=== PATIENT | female | born 1950 | race Caucasian/White ===

== ENCOUNTER 2017-11-25 14:13 | Outpatient (CLI) | payer MEDICARE, BC, OTHER | END 2017-11-25 14:14 | disposition home or self-care (01) | LOC: BICMRI 14:13 | PROVIDERS: ATTEND Internal Medicine | DX: M19.90 Unspecified osteoarthritis, unspecified site (principal); M16.0 Bilateral primary osteoarthritis of hip; M48.061 Spinal stenosis, lumbar region without neurogenic claudication; M51.26 Other intervertebral disc displacement, lumbar region; M99.83 Other biomechanical lesions of lumbar region | CPT/HCPCS: 72148 ==

== ENCOUNTER 2018-07-19 10:26 | Outpatient (CLI) | payer MEDICARE, BC, OTHER | END 2018-07-19 10:27 | disposition home or self-care (01) | LOC: BICMAMMO 10:26 | PROVIDERS: ATTEND Internal Medicine | DX: Z12.31 Encounter for screening mammogram for malignant neoplasm of breast (principal); R92.1 Mammographic calcification found on diagnostic imaging of breast; Z13.820 Encounter for screening for osteoporosis | CPT/HCPCS: 77063; 77067; 77080 ==

== ENCOUNTER 2021-09-17 11:45 | Inpatient (IN) | payer MEDICARE, BC, OTHER ==
[2021-09-17] MEDS ORDERED: Vancomycin 1 GM/200 ML BAG ONE (12:15)
[2021-09-17] MEDS ORDERED: Cefepime 2 GM VIAL ONE (12:15)
[2021-09-17 12:51] LABS: Hemoglobin 12.4 g/dL (12.0-16.0); Mean Corpuscular HGB CONC 34.1 g/dL (32.0-36.0); Mean Corpuscular Hemoglobin 33.5 pg (27.0-31.0); Mean Corpuscular Volume 98.2 fL (78.0-98.0); Platelet Count 160 thou/uL (130-400); RBC Distribution Width 12.5 % (11.5-14.5); Red Blood Cell (RBC) Count 3.69 mill/uL (4.20-5.40); White Blood Cell (WBC) Count 14.9 thou/uL (4.8-10.8)
[2021-09-17 12:52] LABS: #Lymphocytes 0.6 thou/uL (1.20-3.40); #Monocytes 1.7 thou/uL (0.11-0.59); #Neutrophils 12.6 thou/uL (1.40-6.50); %Basophils 0.2 % (0.0-1.0); %Eosinophils 0.1 % (0.0-10.0); %Lymphocytes 4.2 % (21.0-51.0); %Monocytes 11.2 % (0.0-10.0); %Neutrophils 84.3 % (42.0-75.0); Mean Platelet Volume 8.3 fL (7.4-10.4)
[2021-09-17 12:53] LABS: Actual Bicarbonate (HCO3v) 12 mEq/L (22-28); Analyzer IN Cardio ER; Calcium, Ionized (venous) 0.94 mmol/L (1.16-1.32); Chloride (VBG) 113 mmol/L (98-106); Hemoglobin (Hb) 11.6 g/dL (11.7-16.1); Potassium (VBG) 2.84 mmol/L (3.70-5.30); Sodium 139.9 mmol/L (133-146); pH (venous) 7.25 (7.32-7.43)
[2021-09-17 12:55] LABS: Bilirubin Small (Negative); Blood, Urine Large (Negative); Glucose, Urine (Dipstick) Negative (Negative); Ketone, Urine Trace mg/dL (Negative); Leukocyte Negative (Negative); Nitrite Negative (Negative); Protein, Urine (Dipstick) 30 mg/dL (Neg-Trace); Urobilinogen 0.2 mg/dL (Less than 2)
[2021-09-17 12:56] LABS: Clarity Hazy (Clear)
[2021-09-17 13:05] LABS: Amphetamine Not Detected (NotDetected); Barbiturates Screen Not Detected (NotDetected); Benzodiazepine Screen Detected (NotDetected); Cocaine Metabolite Screen Not Detected (NotDetected); Methadone Not Detected (NotDetected); Methamphetamine Not Detected (NotDetected); Opiate Screen Detected (NotDetected); Oxycodone Screen Not Detected (NotDetected); Phencyclidine (PCP) Not Detected (NotDetected); THC/Cannabinoid Screen Not Detected (NotDetected); Tricyclic Screen Detected (NotDetected)
[2021-09-17 13:06] LABS: ALT (SGPT) 83 U/L (8-55); AST (SGOT) 148 U/L (5-34); Albumin 2.8 g/dL (3.4-4.8); Alkaline Phosphatase 92 U/L (40-110); Anion Gap 24 mmol/L (10-20); BUN (Urea Nitrogen) 79 mg/dL (9.8-20.1); Bilirubin, Total 0.7 mg/dL (0.2-1.2); Calc. Creatinine Clearance 0 mL/min (70-130); Calcium 6.9 mg/dL (7.8-10.44); Carbon Dioxide 10 mmol/L (23-31); Chloride 111 mmol/L (98-107); Globulin 2.3 g/dL (2.4-3.5); Glucose 258 mg/dL (83-110); Potassium 3.2 mmol/L (3.5-5.1); Protein, Total 5.1 g/dL (5.8-8.1); Sodium 142 mmol/L (136-145)
[2021-09-17 13:07] LABS: Alcohol 12 mg/dL (Less than 10); Lipase 46 U/L (8-78); Salicylate Less than 8.0 mg/dL (15.0-30.0)
[2021-09-17 13:08] LABS: RBC/HPF 0-3 HPF (0-3); WBC/HPF 0-3 HPF (0-3)
[2021-09-17 13:09] LABS: Bacteria/HPF None Seen HPF (None Seen); Squamous Epithelial 0-3 HPF (0-3)
[2021-09-17 13:13] LABS: CK (CPK) 5014 U/L (29-168)
[2021-09-17 13:26] LABS: CKMB 21.6 ng/mL (0-6.6)
[2021-09-17 13:40] LABS: SARS-CoV-2 NAA Rapid Test Not Detected (NotDetected)
[2021-09-17] MEDS ORDERED: Aspirin 300 MG Suppository ONE (13:58)
[2021-09-17] MEDS: Sodium Chloride 0.9% 1,000 ML IV SCH ×2 (15:28→21:39)
[2021-09-17 15:45] LABS: Lactic Acid 2.2 mmol/L (0.5-2.2)
[2021-09-17] MEDS ORDERED: FLU VACC QS2021-22(65YR UP)/PF 240 MCG/0.7 ML SYRINGE IM ONE (17:45)
[2021-09-17 18:05] VITALS: BMI 31.1
[2021-09-17] MEDS: Nebivolol HCl 5 MG TAB PO SCH (21:39)
[2021-09-17] MEDS: Acetaminophen 325 MG TAB PO PRN (22:52)
[2021-09-18 05:54] LABS: Anion Gap 15 mmol/L (10-20); BUN (Urea Nitrogen) 58 mg/dL (9.8-20.1); Calc. Creatinine Clearance 40 mL/min (70-130); Calcium 7.2 mg/dL (7.8-10.44); Carbon Dioxide 17 mmol/L (23-31); Chloride 116 mmol/L (98-107); Glucose 261 mg/dL (83-110); Sodium 145 mmol/L (136-145)
[2021-09-18] MEDS: Acetaminophen 325 MG TAB PO PRN (05:54)
[2021-09-18] MEDS: Sodium Chloride 0.9% 1,000 ML IV SCH ×3 (05:54→21:35)
[2021-09-18 05:55] LABS: Band 36 % (5-11); Hemoglobin 13.3 g/dL (12.0-16.0); Lymphocytes 2 % (21-51); MDiff Complete? YES; Mean Corpuscular HGB CONC 31.8 g/dL (32.0-36.0); Mean Corpuscular Hemoglobin 31.3 pg (27.0-31.0); Mean Corpuscular Volume 98.4 fL (78.0-98.0); Mean Platelet Volume 8.8 fL (7.4-10.4); Monocytes 8 % (0-10); Neutrophil 54 % (42-75); Platelet Count 147 thou/uL (130-400); RBC Distribution Width 12.7 % (11.5-14.5); Red Blood Cell (RBC) Count 4.25 mill/uL (4.20-5.40)
[2021-09-18 06:15] LABS: Potassium 2.6 mmol/L (3.5-5.1)
[2021-09-18] MEDS ORDERED: Electrolyte Replacement Protocol FS PRN (06:30)
[2021-09-18] MEDS: Potassium Chloride 40 MEQ in Premix Bag 1 BAG IVPB SCH ×2 (07:29→09:47)
[2021-09-18] MEDS ORDERED: Enoxaparin Sodium 30 MG/0.3 ML SYRINGE SC SCH (09:00)
[2021-09-18] MEDS: Nebivolol HCl 5 MG TAB PO SCH ×2 (09:43→21:42)
[2021-09-18] MEDS: cloNIDine 0.3 MG TAB PO SCH ×2 (09:45→21:41)
[2021-09-18 12:26] LABS: Vancomycin, Random 7.4 ug/mL (See Comment)
[2021-09-18] MEDS ORDERED: Cefepime 1 GM in Sodium Chloride 0.9% 100 ML IVPB SCH (13:00)
[2021-09-18] MEDS ORDERED: Vancomycin 1.5 GRAM/300 ML BAG 1.5 GM in Premix Bag 1 BAG IVPB SCH (13:00)
[2021-09-18 14:21] LABS: Potassium 3.9 mmol/L (3.5-5.1)
[2021-09-18] MEDS: Cyclobenzaprine 10 MG TAB PO SCH ×2 (15:28→21:42)
[2021-09-18] MEDS ORDERED: Vancomycin 1 GM in Premix Bag 1 BAG IVPB SCH (18:00)
[2021-09-18] MEDS ORDERED: Atorvastatin Calcium 10 MG TAB PO SCH (21:00)
[2021-09-18] MEDS ORDERED: Non-Formulary Item 1 EACH (Progesterone, Micronized [Progesterone] 200 MG Capsule) PO SCH (21:00)
[2021-09-18] MEDS ORDERED: Famotidine 20 MG TAB PO SCH (21:00)
[2021-09-18] MEDS: Doxycycline 100 MG CAP PO SCH (21:41)
[2021-09-18] MEDS: Progesterone,Micronized 100 MG CAP PO SCH (21:41)
[2021-09-18] MEDS: Diazepam 5 MG TAB PO SCH (21:42)
[2021-09-19] MEDS: Sodium Chloride 0.9% 1,000 ML IV SCH ×3 (04:10→17:16)
[2021-09-19 05:44] LABS: Anion Gap 12 mmol/L (10-20); BUN (Urea Nitrogen) 32 mg/dL (9.8-20.1); Calc. Creatinine Clearance 66 mL/min (70-130); Calcium 7.5 mg/dL (7.8-10.44); Carbon Dioxide 17 mmol/L (23-31); Chloride 120 mmol/L (98-107); Glucose 172 mg/dL (83-110); Sodium 147 mmol/L (136-145)
[2021-09-19 05:51] LABS: Potassium 2.4 mmol/L (3.5-5.1)
[2021-09-19 05:58] LABS: Band 14 % (5-11); Hemoglobin 11.9 g/dL (12.0-16.0); Lymphocytes 9 % (21-51); MDiff Complete? YES; Mean Corpuscular HGB CONC 32.8 g/dL (32.0-36.0); Mean Corpuscular Hemoglobin 32.2 pg (27.0-31.0); Mean Corpuscular Volume 98.1 fL (78.0-98.0); Mean Platelet Volume 8.7 fL (7.4-10.4); Monocytes 2 % (0-10); Neutrophil 75 % (42-75); Platelet Count 127 thou/uL (130-400); Platelet Morphology Comment Appears Decreased; RBC Distribution Width 12.6 % (11.5-14.5); Red Blood Cell (RBC) Count 3.71 mill/uL (4.20-5.40)
[2021-09-19] MEDS ORDERED: Cefepime 2 GM in Sodium Chloride 0.9% 100 ML IVPB SCH (06:30)
[2021-09-19 07:43] LABS: Magnesium 1.2 mg/dL (1.6-2.6)
[2021-09-19] MEDS: Potassium Chloride 40 MEQ in Sodium Chloride 0.9% 250 ML 250 ML IVPB SCH ×2 (08:40→14:03)
[2021-09-19] MEDS: Enoxaparin Sodium 40 MG/0.4 ML SYRINGE SC SCH (08:41)
[2021-09-19] MEDS: cloNIDine 0.3 MG TAB PO SCH ×2 (08:41→20:28)
[2021-09-19] MEDS: Doxycycline 100 MG CAP PO SCH ×2 (08:41→20:28)
[2021-09-19] MEDS: Famotidine 20 MG TAB PO SCH ×2 (08:42→20:29)
[2021-09-19] MEDS: Nebivolol HCl 5 MG TAB PO SCH ×2 (08:42→20:29)
[2021-09-19] MEDS: Saccharomyces boulardii 250 MG CAP PO SCH (08:42)
[2021-09-19] MEDS: Cyclobenzaprine 10 MG TAB PO SCH ×3 (08:42→20:29)
[2021-09-19] MEDS: Estradiol 1 MG TAB PO SCH (08:42)
[2021-09-19] MEDS ORDERED: Magnesium Sulfate 4 GM in Sodium Chloride 0.9% 250 ML 250 ML IVPB SCH (09:00)
[2021-09-19] MEDS ORDERED: Magnesium Sulfate 2 GM in Sodium Chloride 0.9% 100 ML IVPB SCH (09:00)
[2021-09-19 16:47] LABS: Vancomycin, Random 11.6 ug/mL (See Comment)
[2021-09-19] MEDS: Cefepime 2 GM in Sodium Chloride 0.9% 100 ML IVPB SCH (17:16)
[2021-09-19] MEDS ORDERED: Potassium Chloride 20 MEQ TAB PO SCH (18:00)
[2021-09-19] MEDS: VANCOMYCIN 1.75 GM/350 ML BAG 1.75 GM in Premix Bag 1 BAG IVPB SCH (19:25)
[2021-09-19] MEDS: Diazepam 5 MG TAB PO SCH (20:29)
[2021-09-19] MEDS: Progesterone,Micronized 100 MG CAP PO SCH (20:30)
[2021-09-20] MEDS: Acetaminophen/Codeine 30-300mg Tablet PO PRN (03:37)
[2021-09-20] MEDS: Sodium Chloride 0.9% 1,000 ML IV SCH ×4 (03:40→22:12)
[2021-09-20 05:20] LABS: Band 5 % (5-11); Hemoglobin 11.5 g/dL (12.0-16.0); Hypochromia SLIGHT = 6-15 cells (100X) (0-5/hpf); Lymphocytes 12 % (21-51); MDiff Complete? YES; Mean Corpuscular HGB CONC 32.2 g/dL (32.0-36.0); Mean Corpuscular Hemoglobin 31.7 pg (27.0-31.0); Mean Corpuscular Volume 98.6 fL (78.0-98.0); Mean Platelet Volume 8.4 fL (7.4-10.4); Monocytes 13 % (0-10); Neutrophil 70 % (42-75); Platelet Count 112 thou/uL (130-400); Platelet Morphology Comment Appears Decreased; RBC Distribution Width 12.9 % (11.5-14.5); Red Blood Cell (RBC) Count 3.63 mill/uL (4.20-5.40); White Blood Cell (WBC) Count 23.1 thou/uL (4.8-10.8)
[2021-09-20 05:26] LABS: Anion Gap 11 mmol/L (10-20); BUN (Urea Nitrogen) 22 mg/dL (9.8-20.1); Calc. Creatinine Clearance 75 mL/min (70-130); Calcium 7.5 mg/dL (7.8-10.44); Carbon Dioxide 17 mmol/L (23-31); Chloride 119 mmol/L (98-107); Glucose 156 mg/dL (83-110); Sodium 144 mmol/L (136-145)
[2021-09-20 05:39] LABS: Potassium 2.9 mmol/L (3.5-5.1)
[2021-09-20] MEDS: Cefepime 2 GM in Sodium Chloride 0.9% 100 ML IVPB SCH ×2 (05:50→17:33)
[2021-09-20] MEDS: Potassium Chloride 40 MEQ in Premix Bag 1 BAG IVPB SCH ×2 (06:42→10:16)
[2021-09-20] MEDS: Cyclobenzaprine 10 MG TAB PO SCH ×4 (09:24→22:09)
[2021-09-20] MEDS: Enoxaparin Sodium 40 MG/0.4 ML SYRINGE SC SCH (09:24)
[2021-09-20] MEDS: Estradiol 1 MG TAB PO SCH (09:25)
[2021-09-20] MEDS: Doxycycline 100 MG CAP PO SCH ×2 (09:25→22:09)
[2021-09-20] MEDS: cloNIDine 0.3 MG TAB PO SCH ×2 (09:25→22:08)
[2021-09-20] MEDS: Famotidine 20 MG TAB PO SCH ×2 (09:25→22:09)
[2021-09-20] MEDS: Saccharomyces boulardii 250 MG CAP PO SCH (09:25)
[2021-09-20] MEDS: Nebivolol HCl 5 MG TAB PO SCH ×2 (09:25→22:09)
[2021-09-20 15:03] LABS: Potassium 3.8 mmol/L (3.5-5.1)
[2021-09-20] MEDS: VANCOMYCIN 1.75 GM/350 ML BAG 1.75 GM in Premix Bag 1 BAG IVPB SCH (17:55)
[2021-09-20 18:36] LABS: Hemoglobin 10.8 g/dL (12.0-16.0)
[2021-09-20] MEDS: Diazepam 5 MG TAB PO SCH (22:09)
[2021-09-20] MEDS: Progesterone,Micronized 100 MG CAP PO SCH (22:09)
[2021-09-21] MEDS: Cefepime 2 GM in Sodium Chloride 0.9% 100 ML IVPB SCH ×2 (05:01→17:24)
[2021-09-21] MEDS: Sodium Chloride 0.9% 1,000 ML IV SCH ×4 (05:02→22:50)
[2021-09-21 05:45] LABS: Anion Gap 12 mmol/L (10-20); BUN (Urea Nitrogen) 15 mg/dL (9.8-20.1); Calc. Creatinine Clearance 77 mL/min (70-130); Calcium 7.9 mg/dL (7.8-10.44); Carbon Dioxide 14 mmol/L (23-31); Chloride 118 mmol/L (98-107); Glucose 136 mg/dL (83-110); Potassium 3.3 mmol/L (3.5-5.1); Sodium 141 mmol/L (136-145)
[2021-09-21 05:57] LABS: Band 10 % (5-11); Hemoglobin 11.3 g/dL (12.0-16.0); Lymphocytes 11 % (21-51); MDiff Complete? YES; Mean Corpuscular HGB CONC 33.1 g/dL (32.0-36.0); Mean Corpuscular Hemoglobin 32.4 pg (27.0-31.0); Mean Platelet Volume 8.5 fL (7.4-10.4); Metamyelocyte 1 % (0-0); Monocytes 4 % (0-10); Myelocyte 3 % (0-0); Neutrophil 69 % (42-75); Nucleated RBC 2 % (0); Platelet Count 127 thou/uL (130-400); Platelet Morphology Comment Appears Decreased; RBC Morphology Normal; Reactive Lymphocytes 2 % (0-10); Red Blood Cell (RBC) Count 3.49 mill/uL (4.20-5.40); White Blood Cell (WBC) Count 19.2 thou/uL (4.8-10.8)
[2021-09-21] MEDS ORDERED: Potassium Chloride 20 MEQ TAB PO SCH (07:00)
[2021-09-21] MEDS: Saccharomyces boulardii 250 MG CAP PO SCH (09:41)
[2021-09-21] MEDS: cloNIDine 0.3 MG TAB PO SCH ×2 (09:41→21:51)
[2021-09-21] MEDS: Cyclobenzaprine 10 MG TAB PO SCH ×3 (09:41→21:51)
[2021-09-21] MEDS: Nebivolol HCl 5 MG TAB PO SCH ×2 (09:41→21:52)
[2021-09-21] MEDS: Famotidine 20 MG TAB PO SCH ×2 (09:42→21:52)
[2021-09-21] MEDS: Estradiol 1 MG TAB PO SCH (09:42)
[2021-09-21] MEDS: Doxycycline 100 MG CAP PO SCH ×2 (09:42→21:52)
[2021-09-21 18:27] LABS: Vancomycin, Trough 19.6 ug/mL
[2021-09-21] MEDS ORDERED: Loperamide HCl 2 MG CAP PO PRN (18:36)
[2021-09-21] MEDS: VANCOMYCIN 1.75 GM/350 ML BAG 1.75 GM in Premix Bag 1 BAG IVPB SCH (18:39)
[2021-09-21] MEDS ORDERED: Loperamide HCl 2 MG CAP PO SCH (18:45)
[2021-09-21] MEDS: Diazepam 5 MG TAB PO SCH (21:52)
[2021-09-21] MEDS: Progesterone,Micronized 100 MG CAP PO SCH (21:53)
[2021-09-22] MEDS: Sodium Chloride 0.9% 1,000 ML IV SCH ×2 (05:17→14:28)
[2021-09-22] MEDS: Cefepime 2 GM in Sodium Chloride 0.9% 100 ML IVPB SCH (05:17)
[2021-09-22 08:33] LABS: Hemoglobin 11.1 g/dL (12.0-16.0); Mean Corpuscular HGB CONC 34.9 g/dL (32.0-36.0); Mean Corpuscular Hemoglobin 33.5 pg (27.0-31.0); Mean Corpuscular Volume 96.1 fL (78.0-98.0); Mean Platelet Volume 8.7 fL (7.4-10.4); Platelet Count 133 thou/uL (130-400); RBC Distribution Width 13.3 % (11.5-14.5); Red Blood Cell (RBC) Count 3.32 mill/uL (4.20-5.40); White Blood Cell (WBC) Count 20.4 thou/uL (4.8-10.8)
[2021-09-22 08:51] LABS: Anion Gap 12 mmol/L (10-20); BUN (Urea Nitrogen) 9 mg/dL (9.8-20.1); Calc. Creatinine Clearance 76 mL/min (70-130); Calcium 7.8 mg/dL (7.8-10.44); Carbon Dioxide 17 mmol/L (23-31); Chloride 115 mmol/L (98-107); Glucose 153 mg/dL (83-110); Sodium 141 mmol/L (136-145)
[2021-09-22 08:55] LABS: Potassium 2.8 mmol/L (3.5-5.1)
[2021-09-22] MEDS: cloNIDine 0.3 MG TAB PO SCH ×2 (09:11→21:47)
[2021-09-22] MEDS: Nebivolol HCl 5 MG TAB PO SCH ×2 (09:11→21:47)
[2021-09-22] MEDS: Cyclobenzaprine 10 MG TAB PO SCH ×3 (09:11→21:47)
[2021-09-22] MEDS: Doxycycline 100 MG CAP PO SCH (09:11)
[2021-09-22] MEDS: Famotidine 20 MG TAB PO SCH ×2 (09:12→21:47)
[2021-09-22] MEDS: Saccharomyces boulardii 250 MG CAP PO SCH (09:12)
[2021-09-22] MEDS: Estradiol 1 MG TAB PO SCH (09:13)
[2021-09-22] MEDS: Potassium Chloride 20 MEQ TAB PO SCH ×2 (09:20→14:25)
[2021-09-22 10:24] LABS: Band 10 % (5-11); Eosinophils 3 % (0-10); Lymphocytes 12 % (21-51); MDiff Complete? YES; Metamyelocyte 4 % (0-0); Monocytes 10 % (0-10); Myelocyte 2 % (0-0); Neutrophil 58 % (42-75); Platelet Morphology Comment Appears Adequate; Polychromasia SLIGHT = 2-3 cells (100X) (0-2/hpf); Reactive Lymphocytes 1 % (0-10)
[2021-09-22] MEDS ORDERED: Diphenoxylate HCl/Atropine Tablet PO PRN (16:49)
[2021-09-22] MEDS ORDERED: Diphenoxylate HCl/Atropine Tablet PO SCH (17:00)
[2021-09-22] MEDS ORDERED: Potassium Chloride 20 MEQ TAB PO SCH (18:00)
[2021-09-22] MEDS: Albuterol Sulfate 1.25 MG/3 ML NEB EZPAP SCH (19:21)
[2021-09-22] MEDS: Progesterone,Micronized 100 MG CAP PO SCH (21:46)
[2021-09-22] MEDS: Diazepam 5 MG TAB PO SCH (21:47)
[2021-09-23] MEDS: Albuterol Sulfate 1.25 MG/3 ML NEB EZPAP SCH ×4 (01:25→19:01)
[2021-09-23 05:34] LABS: Anion Gap 15 mmol/L (10-20); BUN (Urea Nitrogen) 5 mg/dL (9.8-20.1); Calc. Creatinine Clearance 80 mL/min (70-130); Calcium 7.5 mg/dL (7.8-10.44); Carbon Dioxide 15 mmol/L (23-31); Chloride 116 mmol/L (98-107); Glucose 108 mg/dL (83-110); Potassium 3.7 mmol/L (3.5-5.1); Sodium 142 mmol/L (136-145)
[2021-09-23 08:16] LABS: Hemoglobin 11.6 g/dL (12.0-16.0); Mean Corpuscular HGB CONC 34.2 g/dL (32.0-36.0); Mean Corpuscular Hemoglobin 33.6 pg (27.0-31.0); Mean Corpuscular Volume 98.3 fL (78.0-98.0); Mean Platelet Volume 8.8 fL (7.4-10.4); Platelet Count 134 thou/uL (130-400); RBC Distribution Width 13.7 % (11.5-14.5); Red Blood Cell (RBC) Count 3.46 mill/uL (4.20-5.40); White Blood Cell (WBC) Count 22.9 thou/uL (4.8-10.8)
[2021-09-23 09:18] LABS: Band 18 % (5-11); Lymphocytes 16 % (21-51); MDiff Complete? YES; Metamyelocyte 2 % (0-0); Monocytes 11 % (0-10); Myelocyte 1 % (0-0); Neutrophil 52 % (42-75); Platelet Morphology Comment Appears Adequate; RBC Morphology Normal
[2021-09-23] MEDS: Sodium Chloride 0.9% 1,000 ML IV SCH ×5 (10:22→23:16)
[2021-09-23] MEDS: cloNIDine 0.3 MG TAB PO SCH ×2 (10:23→23:12)
[2021-09-23] MEDS: Nebivolol HCl 5 MG TAB PO SCH ×2 (10:23→19:46)
[2021-09-23] MEDS: Famotidine 20 MG TAB PO SCH ×2 (10:23→19:46)
[2021-09-23] MEDS: Saccharomyces boulardii 250 MG CAP PO SCH (10:23)
[2021-09-23] MEDS: Cyclobenzaprine 10 MG TAB PO SCH ×4 (10:23→19:50)
[2021-09-23] MEDS: Estradiol 1 MG TAB PO SCH (10:24)
[2021-09-23] MEDS: Progesterone,Micronized 100 MG CAP PO SCH (19:47)
[2021-09-23] MEDS: Acetaminophen/Codeine 30-300mg Tablet PO PRN (19:47)
[2021-09-23] MEDS: Diazepam 5 MG TAB PO SCH (23:13)
[2021-09-24] MEDS: Albuterol Sulfate 1.25 MG/3 ML NEB EZPAP SCH ×3 (01:24→14:19)
[2021-09-24] MEDS: Sodium Chloride 0.9% 1,000 ML IV SCH ×2 (04:40→11:55)
[2021-09-24 04:59] LABS: #Eosinphils 0.4 thou/uL (0.0-0.7); #Lymphocytes 3.3 thou/uL (1.20-3.40); #Monocytes 1.3 thou/uL (0.11-0.59); #Neutrophils 11.6 thou/uL (1.40-6.50); %Basophils 0.2 % (0.0-1.0); %Eosinophils 2.5 % (0.0-10.0); %Lymphocytes 19.9 % (21.0-51.0); %Monocytes 7.6 % (0.0-10.0); %Neutrophils 69.9 % (42.0-75.0); Hemoglobin 9.5 g/dL (12.0-16.0); Mean Corpuscular HGB CONC 34.3 g/dL (32.0-36.0); Mean Corpuscular Hemoglobin 33.2 pg (27.0-31.0); Mean Corpuscular Volume 96.6 fL (78.0-98.0); Mean Platelet Volume 8.5 fL (7.4-10.4); Platelet Count 132 thou/uL (130-400); RBC Distribution Width 13.5 % (11.5-14.5); Red Blood Cell (RBC) Count 2.87 mill/uL (4.20-5.40); White Blood Cell (WBC) Count 16.6 thou/uL (4.8-10.8)
[2021-09-24 05:16] LABS: Anion Gap 11 mmol/L (10-20); BUN (Urea Nitrogen) 5 mg/dL (9.8-20.1); Calc. Creatinine Clearance 86 mL/min (70-130); Calcium 6.9 mg/dL (7.8-10.44); Carbon Dioxide 20 mmol/L (23-31); Chloride 112 mmol/L (98-107); Glucose 166 mg/dL (83-110); Sodium 140 mmol/L (136-145)
[2021-09-24] MEDS ORDERED: Potassium Chloride 20 MEQ TAB PO SCH ×2 (07:00→17:00)
[2021-09-24] MEDS: cloNIDine 0.3 MG TAB PO SCH (10:58)
[2021-09-24] MEDS: Famotidine 20 MG TAB PO SCH (10:58)
[2021-09-24] MEDS: Nebivolol HCl 5 MG TAB PO SCH (10:58)
[2021-09-24] MEDS: Estradiol 1 MG TAB PO SCH (10:58)
[2021-09-24] MEDS: Saccharomyces boulardii 250 MG CAP PO SCH (10:58)
[2021-09-24] MEDS: Cyclobenzaprine 10 MG TAB PO SCH (10:59)
[2021-09-24 15:25] VITALS: TEMP 98.7
[2021-09-24 17:13] VITALS: BP 136/63
== END 2021-09-24 17:25 | disposition home or self-care (01) | DRG 871 ==
LOC: ERS 11:45 → ERHOLD 14:11 → IMCU/EMU 17:52 → 2NO 09-19 18:19
PROVIDERS: ADMIT Internal Medicine; ATTEND Internal Medicine
DX: A41.9 Sepsis, unspecified organism (principal); G93.41 Metabolic encephalopathy; J96.01 Acute respiratory failure with hypoxia; R65.21 Severe sepsis with septic shock; M62.82 Rhabdomyolysis; I47.1 Supraventricular tachycardia; N17.9 Acute kidney failure, unspecified; A09 Infectious gastroenteritis and colitis, unspecified; Z20.822 Contact with and (suspected) exposure to COVID-19; M54.9 Dorsalgia, unspecified; G89.29 Other chronic pain; I12.9 Hypertensive chronic kidney disease with stage 1 through stage 4 chronic kidney disease, or unspecified chronic kidney disease; E11.22 Type 2 diabetes mellitus with diabetic chronic kidney disease; N18.30 Chronic kidney disease, stage 3 unspecified; E87.6 Hypokalemia; E83.42 Hypomagnesemia; Z88.8 Allergy status to other drugs, medicaments and biological substances; Z90.49 Acquired absence of other specified parts of digestive tract; Z79.84 Long term (current) use of oral hypoglycemic drugs; Z79.899 Other long term (current) drug therapy
CPT/HCPCS: 36415; 36416; 36556; 51702; 70450; 71045; 74220; 74230; 80048; 80053; 80202; 80306; 80307; 81003; 81015; 82550; 82553; 82805; 83605; 83690; 83735; 84145; 84484; 85025; 87040; 87045; 87046; 87086; 87324; 87427; 87449; 93005; 93306; 93923; 94640; 96365; 96366; 96367; J0692; J1650; J3370; J3411; J3475; J3480; J3490; J7050; J7620; U0002

== ENCOUNTER 2025-08-14 13:30 | Outpatient (CLI) | payer MEDICARE, BC | END 2025-08-14 13:31 | disposition home or self-care (01) | LOC: SCSBT 13:30 | PROVIDERS: ATTEND Anesthesiology | DX: Z09 Encounter for follow-up examination after completed treatment for conditions other than malignant neoplasm (principal); Z87.81 Personal history of (healed) traumatic fracture; Z98.890 Other specified postprocedural states; M48.061 Spinal stenosis, lumbar region without neurogenic claudication; M48.07 Spinal stenosis, lumbosacral region | CPT/HCPCS: 72148 ==